=== PATIENT | female | born 1990 | race Two or more races ===

== ENCOUNTER 2022-09-29 19:50 | Inpatient (IN) | payer MEDICAID ==
[~2022-09-29] VITALS: Ht 154.9 cm; Wt 69.9 kg
[2022-09-29] MEDS ORDERED: TERBUTALINE 1 MG/ML VIAL SUBQ SCH (20:23)
[2022-09-29] MEDS ORDERED: TERBUTALINE 1 MG/ML VIAL SUBQ ONE (20:24)
[2022-09-29 20:53] LABS: BASOPHILS # (AUTO) 0.1 K/uL (0.00-0.22); BASOPHILS % (AUTO) 0.7 % (0.0-2.0); EOSINOPHILS # (AUTO) 0.1 K/uL (0-0.4); EOSINOPHILS % (AUTO) 0.5 % (0.0-4.0); HEMATOCRIT 26.9 % (36-48); HEMOGLOBIN 8.3 g/dL (12.0-16.0); LYMPHOCYTES # (AUTO) 1.9 K/uL (2.5-16.5); LYMPHOCYTES % (AUTO) 13.4 % (20.5-51.1); MEAN CORPUSCULAR HEMOGLOBIN 22 pg (27-31); MEAN CORPUSCULAR HGB CONC 31 g/dL (33-37); MEAN CORPUSCULAR VOLUME 71.3 fL (80-94); MONOCYTES # (AUTO) 0.9 K/uL (0.8-1.0); MONOCYTES % (AUTO) 6.4 % (1.7-9.3); PLATELET COUNT (AUTO) 320 K/uL (140-450); RED BLOOD CELL COUNT(AUTO) 3.77 MIL/uL (4.20-5.40); RED CELL DISTRIBUTION WIDTH 18.3 % (11.6-13.7); WHITE BLOOD COUNT (AUTO) 13.9 K/uL (4.8-10.8)
[2022-09-29] MEDS ORDERED: ceFAZolin 2,000 MG VIAL ONE (20:55)
[2022-09-29 21:14] LABS: ANION GAP 14.5 (8-16); CARBON DIOXIDE 23.9 mmol/L (21-32); CREATININE 0.5 mg/dL (0.6-1.3); POTASSIUM 3.4 mmol/L (3.5-5.1); TOTAL BILIRUBIN 0.2 mg/dL (0.0-1.0)
[2022-09-29] MEDS ORDERED: MORPHINE PRES FREE 10 MG/10 ML AMP IV ONE (21:16)
[2022-09-29] MEDS ORDERED: LACTATED RINGERS 1,000 ML IV SCH (21:25)
[2022-09-29 21:49] LABS: APPEARANCE,URINE CLEAR (CLEAR); BILIRUBIN,URINE NEGATIVE (NEGATIVE); BLOOD, URINE 2+ (NEGATIVE); COLOR,URINE YELLOW (YELLOW); LEUKOCYTE ESTERASE ,URINE NEGATIVE (NEGATIVE); NITRITE, URINE NEGATIVE (NEGATIVE); PH,URINE 6.5 (5.0-9.0); UGLUCOSE NEGATIVE (NEGATIVE)
[2022-09-29] MEDS ORDERED: ACETAMINOPHEN 100 ML IV ONE (21:49)
[2022-09-29] MEDS ORDERED: MEASLES, MUMPS, AND RUBELLA 1 VIAL SQVAC PRN (21:50)
[2022-09-29] MEDS ORDERED: METHYLERGONOVINE 0.2 MG/ML AMP IM PRN (21:50)
[2022-09-29] MEDS ORDERED: KETOROLAC 30 MG/ML VIAL IVP PRN ×2 (21:50→21:55)
[2022-09-29] MEDS ORDERED: TEMAZEPAM 15 MG CAP PO PRN (21:50)
[2022-09-29] MEDS ORDERED: oxyCODONE/APAP 5/325 MG 1 TAB TAB PO PRN ×2 (21:50)
[2022-09-29] MEDS ORDERED: NALOXONE 0.4 MG/ML VIAL IVP PRN (21:55)
[2022-09-29] MEDS ORDERED: OXYTOCIN 20 UNITS in LACTATED RINGERS 1,000 ML IV SCH ×2 (21:55→23:35)
[2022-09-29 21:58] LABS: RBC,URINE 20-50 /HPF (0-5)
[2022-09-29 21:59] LABS: BARBITURATE, URINE NEGATIVE ng/ml (NEG <=200); BENZODIAZEPINE, URINE NEGATIVE ng/mL (NEG <=200); CANNABINOID, URINE POSITIVE ng/mL (NEG <=50); COCAINE, URINE NEGATIVE ng/mL (NEG <=300); OPIATE, URINE NEGATIVE ng/mL (NEG <=2000); PHENCYCLIDINE SCREEN,URINE NEGATIVE ng/mL (NEG <=25)
[2022-09-29] MEDS: diphenhydrAMINE 50 MG/ML VIAL IVP PRN (22:20)
[2022-09-29] MEDS ORDERED: diphenhydrAMINE 50 MG/ML VIAL ONE (22:21)
[2022-09-29] MEDS: OXYTOCIN 20 UNITS/LR PREMIX 1,000 ML IV ONE ×2 (22:26→22:42)
[2022-09-30] MEDS: OXYTOCIN 20 UNITS in LACTATED RINGERS 1,000 ML IV SCH ×2 (01:18→16:45)
[2022-09-30] MEDS: diphenhydrAMINE 50 MG/ML VIAL IVP PRN ×2 (03:28→09:25)
[2022-09-30 08:04] LABS: BASOPHILS % (AUTO) 0.3 % (0.0-2.0); EOSINOPHILS # (AUTO) 0.1 K/uL (0-0.4); HEMATOCRIT 22.2 % (36-48); LYMPHOCYTES # (AUTO) 2.2 K/uL (2.5-16.5); MEAN CORPUSCULAR HEMOGLOBIN 22 pg (27-31); MEAN CORPUSCULAR HGB CONC 30 g/dL (33-37); MEAN CORPUSCULAR VOLUME 71.2 fL (80-94); MONOCYTES # (AUTO) 0.8 K/uL (0.8-1.0); MONOCYTES % (AUTO) 6.9 % (1.7-9.3); NEUTROPHILS # (AUTO) 9.1 K/uL (1.8-7.7); NEUTROPHILS % (AUTO) 73.8 % (42.2-75.2); PLATELET COUNT (AUTO) 265 K/uL (140-450); RED BLOOD CELL COUNT(AUTO) 3.12 MIL/uL (4.20-5.40); RED CELL DISTRIBUTION WIDTH 18.1 % (11.6-13.7); WHITE BLOOD COUNT (AUTO) 12.3 K/uL (4.8-10.8)
[2022-09-30 08:14] LABS: HEMOGLOBIN 6.7 g/dL (12.0-16.0)
[2022-09-30] MEDS ORDERED: OXYTOCIN 20 UNITS/LR PREMIX 1,000 ML IV ONE ×2 (08:18→16:36)
[2022-09-30] MEDS: SIMETHICONE 80 MG TAB.CHEW PO PRN ×3 (09:12→18:29)
--- NOTE | 2022-09-30 10:18 | NUR ---
PATIENT HAS BEEN SCREENED AND CATEGORIZED LOW NUTRITION RISK. PATIENT WILL BE SEEN WITHIN 7 DAYS OF ADMISSION. 10/06/22 REVIEWED BY MIGUEL GARSIA RD
--- NOTE | 2022-09-30 11:00 | NUR ---
DC PLANNING ORDER FOR CONSULT RECEIVED FOR OB POS TOX; METHAMPHETAMINE AND CANNABIS USE. SW MET WITH PT AT BEDSIDE TO COMPLETE ASSESSMENT AND TO PROVIDE PT WITH RESOURCES. PT REPORTS HX OF CHRONIC HOMELESSNESS AND REPORTS SHE HAS A PLACE TO STAY HOWEVER IS UNSTABLE. PT REPORTS ADDRESS ON FILE IS PERMANENT MAILING ADDRESS, ADDRESS IS HER GRANDMOTHERS HOME. PT IDENTIFIED BETY PAGAN, GRANDMOTHER, AND BETY MAE, COUSIN, EMERGENCY CONTACTS. PT DENIES TAKING MEDICATION AT THIS TIME AND REPORTS SHE IS INDEPENDENT IN ALL ACTIVITIES. PT REPORTS NO CARE FOR THIS SHE REPORTS THAT SHE INTENDED ON HAVING A HOME SHE WAS FEARFUL OF COVID. SW INQUIRED ON SUBSTANCE USE HX PT TESTED POSITIVE FOR METH AND CANNABIS USE. PT REPORTS LAST AMPHETAMINE USE 1 WEEK, OR SO AGO. PT ADMITS TO USE THROUGH OUT . PT REPORTS HAVING THREE CHILDREN WHO CURRENTLY ARE NOT IN HER CARE. PT REPORTS CPS INVOLVEMENT IN [facility] AND REPORTS LAST RESULTED IN CPS INVOLVEMENT. PT REPORTS CHILDREN AL LUCERO (5), DOUG LUCERO (3) MEMO RUIZ (1) AND SHOSHANA RUIZ BORN 09/29/22. PT REPORTS LIMITED FAMILY INVOLVEMENT A RESULT OF HER LIFESTYLE AND BC HER CHILDREN ARE NOT IN HER CARE, CAUSING FAMILIAL TENSIONS. SW PROVIDED PT WITH PSYCHOEDUCATION ON AMPHETAMINE USE IMPLICATIONS ON DEVELOPMENT AND DEVELOPMENT. PT WAS RECEPTIVE. SPOKE TO PATIENT ABOUT LOCAL SUBSTANCE USE PROGRAMS, PT RECEPTIVE AND REPORTS THAT HER EX MOTHER IN LAW CURRENTLY WORKS AT [employer] AND WILL BE IN CONTACT WITH [facility] FOR HELP IN ADMISSIONS. EDUCATED PT ON MANDATING REPORTING. PT AWARE A NEW REFERRAL WILL BE GENERATED FOR NISSA, SHOSHANA RUIZ. PT REPORTS BABY'S FATHER, SHOSHANA RUIZ, ,IS PRESENT HOWEVER, UNSURE OF ROLE BABY'S FATHER WILL BE TAKING. SHOSHANA MANCERA IS REPORTED TO BE FATHER OF TWO OF HER OTHER CHILDREN (AL, MEMO AND CLARE ANNA). PT REPORTS SHE WILL BE IN CONTACT WITH HER GRANDMOTHER AND COUSIN TO SEE IF THEY CAN TAKE BABY HARIKA RUIZ SO THAT CPS DOES NOT PLACE CHILD WITH RESOURCE PARENTS AND CHILD IS NOT PLACED "IN THE SYSTEM". SW EDUCATED PT ON DEPRESSION, PT RECEPTIVE AND DENIES SI. HI, SIB. PATIENT ACCEPTED MENTAL HEALTH RESOURCES, SUBSTANCE USE RESOURCES, RESOURCES, HOMELESS RESOURCES, AMPHETAMINE IMPLICATIONS ON AND INFANT DEVELOPMENT RESOURCES, EMERGENCY ASSISTANCE RESOURCES, AND WIC RESOURCES PROVIDED BY PAULA. SW OUTREACHED TO [facility] CPS, TO FILE REPORTS. CALL TAKEN BY MIKE DOWNING, [phone]. REPORT NUMBER; [id number] SUPPLEMENTAL REPORT SS [id number] FILED ONLINE: EMR REPORT# [id number] TRACKING NUMBER:[phone] [facility] REPORTS REFERRAL GENERATED IMMEDIATE RESPONSE AND A SW WILL BE SENT TO HOSPITAL TO MEET WITH PT AND BABY. DC PLAN TENTATIVE ON CPS INVOLVEMENT AND PLAN FOR REMOVAL BASED ON SW INVESTIGATION. Addendum: 09/30/22 at 1535 by Hasmukh KILLIAN Amended: Links added. Addendum: 09/30/22 at 1536 by Hasmukh KILLIAN INFORMATION ENDORSED TO PT NURSE, WELL , INSPECTOR TESTER SORTER.
[2022-09-30] MEDS: DOCUSATE SOD/SENNA 50/8.6 MG 1 TAB PO SCH (21:04)
[2022-10-01] MEDS ORDERED: CAMERA MC ONE ×2 (03:03→22:50)
[2022-10-01] MEDS: IBUPROFEN 800 MG TAB PO PRN (20:08)
[2022-10-01] MEDS: DOCUSATE SOD/SENNA 50/8.6 MG 1 TAB PO SCH (20:17)
[2022-10-02] MEDS: IBUPROFEN 800 MG TAB PO PRN ×2 (04:18→14:29)
== END 2022-10-02 16:08 | disposition home or self-care (01) | DRG 540 ==
LOC: MLD 19:50 → OBSVTOIN 20:20 → MFCC 22:55
PROVIDERS: ADMIT Obstetrics & Gynecology; ATTEND Obstetrics & Gynecology
PROC: 10D00Z1 Extraction of Products of Conception, Low, Open Approach (ICD-10-PCS; principal; 2022-09-29 21:00)
DX: O48.0 Post-term pregnancy (principal); R71.0 Precipitous drop in hematocrit; O34.211 Maternal care for low transverse scar from previous cesarean delivery; Z20.822 Contact with and (suspected) exposure to COVID-19; Z3A.40 40 weeks gestation of pregnancy; Z37.0 Single live birth
CPT/HCPCS: 36415; 80053; 80305; 81001; 85025; 86592; 86762; 86886; 86900; 86901; 87086; 87340; 88307; J1200; J1885; J2270; J2590; J3105; J7120

== ENCOUNTER 2024-03-23 00:48 | Inpatient (IN) | payer MEDICAID ==
[~2024-03-23] VITALS: Ht 154.9 cm; Wt 68.0 kg
[2024-03-23 01:04] VITALS: BP 115/78; PULSE 76; RESP 18; TEMP 98.6
[2024-03-23] MEDS ORDERED: CARBOPROST 250 MCG/ML AMP IM PRN (01:55)
[2024-03-23] MEDS ORDERED: METHYLERGONOVINE 0.2 MG/ML AMP IM PRN ×2 (01:55→08:20)
[2024-03-23] MEDS: LACTATED RINGERS 1,000 ML IV SCH (02:22)
[2024-03-23] MEDS: TERBUTALINE 1 MG/ML VIAL SUBQ SCH (02:33)
[2024-03-23 02:34] LABS: APPEARANCE,URINE HAZY (CLEAR); BILIRUBIN,URINE NEGATIVE (NEGATIVE); BLOOD, URINE 2+ (NEGATIVE); COLOR,URINE YELLOW (YELLOW); LEUKOCYTE ESTERASE ,URINE NEGATIVE (NEGATIVE); NITRITE, URINE NEGATIVE (NEGATIVE); PROTEIN,URINE TRACE (NEGATIVE); UGLUCOSE NEGATIVE (NEGATIVE); UROBILINOGEN,URINE 0.2 EU/dL (0.2 - 1)
[2024-03-23 02:35] LABS: BASOPHILS % (AUTO) 0.4 % (0.0-2.0); EOSINOPHILS # (AUTO) 0.2 K/uL (0-0.4); EOSINOPHILS % (AUTO) 1.6 % (0.0-4.0); HEMATOCRIT 28.7 % (36-48); HEMOGLOBIN 9.3 g/dL (12.0-16.0); LYMPHOCYTES # (AUTO) 1.6 K/uL (2.5-16.5); LYMPHOCYTES % (AUTO) 17.4 % (20.5-51.1); MEAN CORPUSCULAR HEMOGLOBIN 24 pg (27-31); MEAN CORPUSCULAR HGB CONC 32 g/dL (33-37); MEAN CORPUSCULAR VOLUME 75.4 fL (80-94); MONOCYTES # (AUTO) 0.7 K/uL (0.8-1.0); MONOCYTES % (AUTO) 7.3 % (1.7-9.3); NEUTROPHILS # (AUTO) 6.9 K/uL (1.8-7.7); NEUTROPHILS % (AUTO) 73.3 % (42.2-75.2); PLATELET COUNT (AUTO) 392 K/uL (140-450); RED BLOOD CELL COUNT(AUTO) 3.81 MIL/uL (4.20-5.40); RED CELL DISTRIBUTION WIDTH 22.1 % (11.6-13.7); WHITE BLOOD COUNT (AUTO) 9.4 K/uL (4.8-10.8)
[2024-03-23] MEDS: MORPHINE SULFATE 4 MG/ML SYR IVP PRN (02:35)
[2024-03-23] MEDS: ONDANSETRON 4 MG/2 ML VIAL IVP PRN (02:36)
[2024-03-23 02:47] LABS: AMPHETAMINE, URINE NEGATIVE ng/ml (NEG <=1000); BARBITURATE, URINE NEGATIVE ng/ml (NEG <=200); BENZODIAZEPINE, URINE NEGATIVE ng/mL (NEG <=200); CANNABINOID, URINE NEGATIVE ng/mL (NEG <=50); COCAINE, URINE NEGATIVE ng/mL (NEG <=300); OPIATE, URINE NEGATIVE ng/mL (NEG <=2000); PHENCYCLIDINE SCREEN,URINE NEGATIVE ng/mL (NEG <=25)
[2024-03-23 03:03] LABS: ALBUMIN 1.7 g/dL (3.4-5.0); ANION GAP 10.8 (8-16); CALCIUM 7.7 mg/dL (8.5-10.1); CREATININE 0.5 mg/dL (0.6-1.3); INR 0.86 (0.8-1.2); PARTIAL THROMBOPLASTIN TIME 28.6 secs (22-35.6); POTASSIUM 3.8 mmol/L (3.5-5.1); PROTHROMBIN TIME 9.1 secs (10.8-13.4); TOTAL BILIRUBIN 0.2 mg/dL (0.0-1.0); TOTAL PROTEIN, SERUM 5.8 g/dL (6.4-8.2)
[2024-03-23 03:14] LABS: BACTERIA,URINE 2+ /HPF (None Seen); RBC,URINE 20-50 /HPF (0-5); WBC,URINE 0-5 /HPF (0-5)
[2024-03-23] MEDS ORDERED: CITRIC ACID/SODIUM CITRATE 30 ML UDC PO SCH (07:00)
[2024-03-23] MEDS ORDERED: AMPICILLIN 2,000 MG VIAL ONE (07:31)
[2024-03-23] MEDS: CITRIC ACID/SODIUM CITRATE 30 ML UDC PO ONE (07:34)
[2024-03-23] MEDS ORDERED: MORPHINE PRES FREE 5 MG/10 ML AMP IV ONE (07:44)
[2024-03-23] MEDS ORDERED: fentaNYL citrate 0.05 MG/ML VIAL ONE (07:44)
[2024-03-23] MEDS ORDERED: KETOROLAC 30 MG/ML VIAL ONE (08:00)
[2024-03-23] MEDS ORDERED: TEMAZEPAM 15 MG CAP PO PRN (08:20)
[2024-03-23] MEDS ORDERED: IBUPROFEN 800 MG TAB PO PRN (08:20)
[2024-03-23] MEDS: OXYTOCIN 20 UNITS in LACTATED RINGERS 1,000 ML IV SCH (08:20)
[2024-03-23] MEDS ORDERED: SIMETHICONE 80 MG TAB.CHEW PO PRN (08:20)
[2024-03-23] MEDS ORDERED: KETOROLAC 30 MG/ML VIAL IVP PRN (08:20)
[2024-03-23] MEDS ORDERED: NALOXONE 0.4 MG/ML VIAL IVP PRN ×3 (08:45)
[2024-03-23] MEDS ORDERED: ONDANSETRON 4 MG/2 ML VIAL IVP PRN (08:45)
[2024-03-23] MEDS: OXYTOCIN/0.9 % SODIUM CHLORIDE 500 ML IV ONE (09:40)
[2024-03-23] MEDS: diphenhydrAMINE 50 MG/ML VIAL IVP PRN (12:54)
[2024-03-23] MEDS: KETOROLAC 30 MG/ML VIAL IM/IVP SCH (14:45)
[2024-03-23] MEDS ORDERED: OXYTOCIN 10 UNITS/ML VIAL ONE (18:37)
[2024-03-23] MEDS: OXYTOCIN 10 UNITS/ML VIAL ONE (18:38)
[2024-03-23] MEDS: DOCUSATE SOD/SENNA 50/8.6 MG 1 TAB PO SCH (20:57)
[2024-03-23] MEDS: LACTATED RINGERS 500 ML IV ONE (21:16)
[2024-03-24] MEDS: OXYTOCIN/0.9 % SODIUM CHLORIDE 500 ML IV SCH (00:24)
[2024-03-24 06:30] LABS: BASOPHILS % (AUTO) 0.3 % (0.0-2.0); EOSINOPHILS # (AUTO) 0.2 K/uL (0-0.4); EOSINOPHILS % (AUTO) 1.7 % (0.0-4.0); HEMATOCRIT 25.5 % (36-48); HEMOGLOBIN 8.2 g/dL (12.0-16.0); LYMPHOCYTES # (AUTO) 1.7 K/uL (2.5-16.5); LYMPHOCYTES % (AUTO) 17.5 % (20.5-51.1); MEAN CORPUSCULAR HEMOGLOBIN 24 pg (27-31); MEAN CORPUSCULAR HGB CONC 32 g/dL (33-37); MEAN CORPUSCULAR VOLUME 75.4 fL (80-94); MONOCYTES # (AUTO) 0.6 K/uL (0.8-1.0); MONOCYTES % (AUTO) 6.2 % (1.7-9.3); NEUTROPHILS # (AUTO) 7.2 K/uL (1.8-7.7); NEUTROPHILS % (AUTO) 74.3 % (42.2-75.2); PLATELET COUNT (AUTO) 339 K/uL (140-450); RED BLOOD CELL COUNT(AUTO) 3.38 MIL/uL (4.20-5.40); RED CELL DISTRIBUTION WIDTH 23.2 % (11.6-13.7); WHITE BLOOD COUNT (AUTO) 9.7 K/uL (4.8-10.8)
[2024-03-24] MEDS: oxyCODONE/APAP 5/325 MG 1 TAB TAB PO PRN ×2 (09:43→19:52)
[2024-03-25] MEDS ORDERED: CAMERA MC ONE (02:53)
== END 2024-03-25 18:00 | disposition home or self-care (01) | DRG 540 ==
LOC: MFCC 00:48 → OBSVTOIN 00:48 → MLD 01:53 → MFCC 10:00
PROVIDERS: ADMIT Obstetrics & Gynecology; ATTEND Obstetrics & Gynecology
PROC: 10D00Z1 Extraction of Products of Conception, Low, Open Approach (ICD-10-PCS; principal; 2024-03-23 08:00)
DX: O42.02 Full-term premature rupture of membranes, onset of labor within 24 hours of rupture (principal); R71.0 Precipitous drop in hematocrit; O34.211 Maternal care for low transverse scar from previous cesarean delivery; Z37.0 Single live birth; Z3A.39 39 weeks gestation of pregnancy
CPT/HCPCS: 36415; 51702; 80053; 80305; 81001; 85025; 85610; 85730; 86592; 86762; 86886; 86900; 86901; 87086; 87340; J0290; J0690; J1200; J1885; J2270; J2405; J2590; J2765; J3010; J3105; J7060; J7120